=== PATIENT | male | born 1990 | race Caucasian/White ===

== ENCOUNTER 2018-07-13 00:13 | Emergency (ER) | payer SELFPAY ==
[~2018-07-13] VITALS: Ht 180.3 cm; Wt 80.3 kg
[2018-07-13 00:15] VITALS: BP 137/81; PULSE 80; RESP 20; Ht 180.3 cm; Wt 80.3 kg
== END 2018-07-13 02:25 | disposition left against medical advice (07) ==
LOC: FTE 00:13
DX: Z53.21 Procedure and treatment not carried out due to patient leaving prior to being seen by health care provider (principal)